=== PATIENT | female | born 1975 | race Caucasian/White ===

== ENCOUNTER 2022-01-06 20:05 | Inpatient (IN) | payer OTHER ==
[2022-01-06 20:59] VITALS: BMI 22.7
[2022-01-06] MEDS ORDERED: ACETAMINOPHEN 325 MG TABLET (FP) PO PRN ×2 (22:02)
[2022-01-06] MEDS ORDERED: ONDANSETRON *ODT* 4 MG TABLET SL PRN (22:02)
[2022-01-06] MEDS ORDERED: MAG HYDROX/AL HYDROX/SIMETH 30 ML UNIT-DOSE CUP PO PRN (22:02)
[2022-01-06] MEDS ORDERED: LOPERAMIDE HCL 2 MG CAPSULE PO PRN (22:02)
[2022-01-06] MEDS ORDERED: BISMUTH SUBSALICYLATE 524 MG/30 ML PO PRN (22:02)
[2022-01-06] MEDS ORDERED: DICYCLOMINE HCL 10 MG CAPSULE PO PRN (22:02)
[2022-01-06] MEDS ORDERED: IBUPROFEN 600 MG TABLET (FP) PO PRN (22:02)
[2022-01-06] MEDS ORDERED: guaiFENesin 200 MG/10 ML 10 ML UNIT-DOSE CUPS PO PRN (22:02)
[2022-01-06] MEDS ORDERED: BENZOCAINE/MENTHOL (CHLORASEPTIC ) LOZENGE MM PRN (22:02)
[2022-01-06] MEDS ORDERED: MAGNESIUM HYDROX 2400MG/30ML ORAL SUSPENSION 30 ML CUP PO PRN (22:02)
[2022-01-06] MEDS ORDERED: MAGNESIUM CITRATE 300 ML BOTTLE PO PRN (22:02)
[2022-01-06] MEDS ORDERED: P-EPHED 60MG/TRIPROLIDI 2.5MG TABLET PO PRN (22:02)
[2022-01-06] MEDS ORDERED: LORazepam 1 MG TABLET PO PRN (22:04)
[2022-01-06] MEDS ORDERED: LORazepam 2 MG TABLET ONE (23:22)
[2022-01-06] MEDS: LORazepam 2 MG TABLET PO SCH (23:25)
[2022-01-07] MEDS: LORazepam 2 MG TABLET PO SCH ×4 (06:11→22:25)
[2022-01-07] MEDS: PRENATAL VITAMINS W/ FOLIC ACID TABLET (FP) PO SCH (10:48)
[2022-01-07 11:27] LABS: HEMATOCRIT 39.1 % (32.4-45.2); HEMOGLOBIN 13.2 GM/dL (10.7-15.3); MCH 34.7 pg (25.7-33.7); MCHC 33.8 g/dl (32.0-36.0); MEAN CELL VOLUME 102.7 fl (80-96); MEAN PLT VOLUME 9.2 fl (7.5-11.1); PLATELET COUNT 127 10^3/uL (134-434); RBC 3.81 M/mm3 (3.60-5.2); RDW 12.7 % (11.6-15.6); WHITE BLOOD COUNT 2.4 K/mm3 (4.0-10.0)
[2022-01-07 12:31] LABS: HIV INTERPRETATION NEGATIVE (NEGATIVE)
[2022-01-07 12:32] LABS: BLOOD UREA NITROGEN 5.8 mg/dL (7-18); CALCIUM 10.4 mg/dL (8.5-10.1)
[2022-01-07 12:34] LABS: BILIRUBIN,TOTAL 1.3 mg/dL (0.2-1); TOT PROT 8.4 g/dl (6.4-8.2)
[2022-01-07 12:36] LABS: CREATININE 0.7 mg/dL (0.55-1.3)
[2022-01-07] MEDS: hydrOXYzine PAMOATE 25 MG CAPSULE (FP) PO PRN ×2 (17:43→22:25)
[2022-01-07] MEDS: METHOCARBAMOL 500 MG TABLET PO PRN (17:44)
[2022-01-07] MEDS: THIAMINE HCL 100 MG TABLET (FP) PO SCH (22:24)
[2022-01-07] MEDS: MELATONIN 5 MG TABLETS PO PRN (22:24)
[2022-01-08] MEDS: LORazepam 1 MG TABLET PO SCH ×4 (05:33→22:39)
[2022-01-08] MEDS: hydrOXYzine PAMOATE 25 MG CAPSULE (FP) PO PRN ×3 (10:26→22:39)
[2022-01-08] MEDS: PRENATAL VITAMINS W/ FOLIC ACID TABLET (FP) PO SCH (10:26)
[2022-01-08] MEDS: METHOCARBAMOL 500 MG TABLET PO PRN (18:11)
[2022-01-08] MEDS: MELATONIN 5 MG TABLETS PO PRN (22:39)
[2022-01-08] MEDS: THIAMINE HCL 100 MG TABLET (FP) PO SCH (22:39)
[2022-01-09] MEDS ORDERED: LORazepam 0.5 MG TABLET PO PRN
[2022-01-09] MEDS: LORazepam 0.5 MG TABLET PO SCH ×4 (06:00→22:21)
[2022-01-09] MEDS: PRENATAL VITAMINS W/ FOLIC ACID TABLET (FP) PO SCH (10:08)
[2022-01-09] MEDS: IBUPROFEN 400 MG TABLET (FP) PO PRN (12:14)
[2022-01-09] MEDS: METHOCARBAMOL 500 MG TABLET PO PRN (12:14)
[2022-01-09] MEDS: hydrOXYzine PAMOATE 25 MG CAPSULE (FP) PO PRN (22:20)
[2022-01-09] MEDS: THIAMINE HCL 100 MG TABLET (FP) PO SCH (22:20)
[2022-01-09] MEDS: MELATONIN 5 MG TABLETS PO PRN (22:20)
[2022-01-10] MEDS ORDERED: LORazepam 0.5 MG TABLET PO ONE (05:00)
[2022-01-10] MEDS: IBUPROFEN 400 MG TABLET (FP) PO PRN (05:34)
[2022-01-10 08:51] VITALS: BP 130/89; PULSE 100; RESP 16; TEMP 98
== END 2022-01-10 09:05 | disposition home or self-care (01) | DRG 775 ==
LOC: YASAS 20:05 → Y3N 22:40 → UNDOADMIN 22:40 → Y6N 22:42 → Y3N 22:42
PROVIDERS: ADMIT Allergy & Immunology; ATTEND Surgery
PROC: HZ2ZZZZ Detoxification Services for Substance Abuse Treatment (ICD-10-PCS; principal; 2022-01-06)
DX: F10.230 Alcohol dependence with withdrawal, uncomplicated (principal); Z87.19 Personal history of other diseases of the digestive system; Z86.2 Personal history of diseases of the blood and blood-forming organs and certain disorders involving the immune mechanism
CPT/HCPCS: 36415; 80053; 85027; 86780; 87389; C9803-CS; U0003; U0005